=== PATIENT | female | born 1955 | race Caucasian/White ===

== ENCOUNTER 2016-06-22 11:36 | Emergency (ER) | payer BC ==
[~2016-06-22] VITALS: Ht 162.6 cm; Wt 45.5 kg
[2016-06-22 12:16] LABS: HEMATOCRIT 37.4 % (36.0-46.0); MCH 32.4 PG (29.0-34.0); MCHC 36.4 G/DL (30.0-36.0); MEAN PLAT.VOLUME 9.8 uM^3 (9.5-12.4); PLATELET COUNT 67 K/uL (156-360); RBC DIS.WIDTH-CV 12.7 % (11.8-14.6); RBC DIS.WIDTH-SD 40.2 % (39-53); WHITE BLOOD COUNT 5.8 K/uL (4.1-10.2)
[2016-06-22 12:23] LABS: CHLORIDE 93 mEq/L (99-109); POTASSIUM 3.9 mEq/L (3.7-5.4); SODIUM 137 mEq/L (136-147)
[2016-06-22 12:25] LABS: GLUCOSE 131 mg/dL (70-99)
[2016-06-22 12:26] LABS: ANION GAP 20 MEQ/L (2-14)
[2016-06-22 12:29] LABS: GFR ESTIMATE (CALCULATED) > 59 mL/min/
[2016-06-22 12:30] LABS: UREA NITROGEN (BUN) 8 mg/dL (9-23)
[2016-06-22] MEDS ORDERED: ZOFRAN ODT4 MG PO (15:44)
[2016-06-22] MEDS ORDERED: LIBRIUM25 MG PO (15:44)
[2016-06-22 15:50] VITALS: BP 125/73
== END 2016-06-22 15:50 | disposition home or self-care (01) ==
LOC: EME 11:36
PROVIDERS: Emergency Medicine
DX: F10.129 Alcohol abuse with intoxication, unspecified (principal); E87.2 Acidosis; F17.200 Nicotine dependence, unspecified, uncomplicated
CPT/HCPCS: 80048; 85027; 99281; 99285; J7030